=== PATIENT | female | born 1995 | race Caucasian/White ===

== ENCOUNTER 2020-12-19 22:40 | Emergency (ER) | payer OTHER ==
[2020-12-19 23:18] LABS: HEMOGLOBIN 12.8 gm/dl (12.3-15.3); RED BLOOD COUNT 4.06 M/UL (4.00-5.10); WHITE BLOOD COUNT 8.3 K/UL (4.5-11.0)
[2020-12-19 23:33] LABS: BUN/CREATININE RATIO 16 (0-10)
[2020-12-20] MEDS ORDERED: OMNICEF 300 MG300 MG PO (00:29)
== END 2020-12-20 01:00 | disposition home or self-care (01) ==
LOC: ER1 22:40
PROVIDERS: Emergency Medicine
DX: O23.41 Unspecified infection of urinary tract in pregnancy, first trimester (principal); O99.331 Smoking (tobacco) complicating pregnancy, first trimester; F17.210 Nicotine dependence, cigarettes, uncomplicated; Z3A.01 Less than 8 weeks gestation of pregnancy
CPT/HCPCS: 80053; 81001; 84702; 85025; 87086; 96365; 99284; J0696

== ENCOUNTER 2021-05-23 23:41 | Outpatient (CLI) | payer OTHER ==
[~2021-05-23 23:41] MED LIST: OMNICEF 300 MG300 MG PO
== END 2021-05-24 01:54 | disposition home or self-care (01) ==
LOC: GENOP 23:41
DX: O36.8120 Decreased fetal movements, second trimester, not applicable or unspecified (principal); Z3A.27 27 weeks gestation of pregnancy
CPT/HCPCS: 59025

== ENCOUNTER 2021-06-02 21:52 | Outpatient (CLI) | payer OTHER | END 2021-06-02 23:39 | disposition home or self-care (01) | LOC: GENOP 21:52 | DX: O46.93 Antepartum hemorrhage, unspecified, third trimester (principal); O99.891 Other specified diseases and conditions complicating pregnancy; M54.5 Low back pain; R10.9 Unspecified abdominal pain; Z3A.28 28 weeks gestation of pregnancy | CPT/HCPCS: 81001; 83518; G0463 ==

== ENCOUNTER → 2021-07-13 | Outpatient (CLI) | payer OTHER | LOC: GENOP 21:25 | DX: O47.03 False labor before 37 completed weeks of gestation, third trimester (principal); Z3A.34 34 weeks gestation of pregnancy; O99.353 Diseases of the nervous system complicating pregnancy, third trimester; O99.513 Diseases of the respiratory system complicating pregnancy, third trimester; G43.909 Migraine, unspecified, not intractable, without status migrainosus; J45.909 Unspecified asthma, uncomplicated; O99.613 Diseases of the digestive system complicating pregnancy, third trimester; K21.9 Gastro-esophageal reflux disease without esophagitis | CPT/HCPCS: 76818; 81001; 96360 ==

== ENCOUNTER 2021-07-18 23:30 | Outpatient (CLI) | payer OTHER | END 2021-07-19 01:41 | disposition home or self-care (01) | LOC: GENOP 23:30 | DX: O99.891 Other specified diseases and conditions complicating pregnancy (principal); N89.8 Other specified noninflammatory disorders of vagina | CPT/HCPCS: 59025; 81001; 83518 ==

== ENCOUNTER 2021-08-09 16:20 | Inpatient (IN) | payer OTHER ==
[2021-08-09 17:26] LABS: HEMOGLOBIN 10.3 gm/dl (12.3-15.3); RED BLOOD COUNT 3.24 M/UL (4.00-5.10); WHITE BLOOD COUNT 12.8 K/UL (4.5-11.0)
[2021-08-09] MEDS ORDERED: PROAIR HFA8.5 GM INH (17:55)
[2021-08-09] MEDS ORDERED: VITAMIN B-625 MG PO (17:59)
[2021-08-09] MEDS ORDERED: TUMS200 MG PO (17:59)
[2021-08-09] MEDS ORDERED: ZYRTEC10 M3 PO (17:59)
[2021-08-09] MEDS ORDERED: ADVAIR 100-501 EACH INH (18:00)
[2021-08-09] MEDS ORDERED: PROTONIX 40 MG40 M1 PO (18:00)
[2021-08-12 07:33] LABS: HEMOGLOBIN 9.7 gm/dl (12.3-15.3)
[2021-08-12] MEDS ORDERED: HEMOCYTE324 MG PO (07:44)
[2021-08-12] MEDS ORDERED: COLACE100 MG PO (07:44)
[2021-08-12] MEDS ORDERED: IBUPROFEN800 MG PO (07:44)
[2021-08-12] MEDS ORDERED: PERCOCET 5/325 T1 EA PO (19:05)
== END 2021-08-13 11:33 | disposition home or self-care (01) | DRG 787 ==
LOC: GENOP 16:20 → OB 16:57
PROVIDERS: Obstetrics & Gynecology; ADMIT Obstetrics & Gynecology
PROC: 10D00Z1 Extraction of Products of Conception, Low, Open Approach (ICD-10-PCS; principal; 2021-08-09)
PROC: 10H073Z Insertion of Monitoring Electrode into Products of Conception, Via Natural or Artificial Opening (ICD-10-PCS; 2021-08-09)
PROC: 4A1H7CZ Monitoring of Products of Conception, Cardiac Rate, Via Natural or Artificial Opening (ICD-10-PCS; 2021-08-09)
DX: O41.03X0 Oligohydramnios, third trimester, not applicable or unspecified (principal); O10.92 Unspecified pre-existing hypertension complicating childbirth; O62.0 Primary inadequate contractions; Z37.0 Single live birth; Z3A.38 38 weeks gestation of pregnancy; O99.52 Diseases of the respiratory system complicating childbirth; Z20.822 Contact with and (suspected) exposure to COVID-19; O99.214 Obesity complicating childbirth; E66.9 Obesity, unspecified; O69.81X0 Labor and delivery complicated by cord around neck, without compression, not applicable or unspecified; Z90.49 Acquired absence of other specified parts of digestive tract; Z88.5 Allergy status to narcotic agent
CPT/HCPCS: 81001; 85014; 85018; 85025; 85461; 86850; 86900; 86901; C9113; G0463; J0690; J1885; J2270; J2274; J2370; J2405; J2590; J2765; J2790; J2795; U0002

== ENCOUNTER 2021-08-24 12:04 | Inpatient (IN) | payer BC, OTHER ==
[~2021-08-24] VITALS: Ht 162.6 cm; Wt 85.3 kg
[~2021-08-24 12:04] MED LIST changes: +ADVAIR 100-501 EACH INH; +COLACE100 MG PO; +HEMOCYTE324 MG PO; +IBUPROFEN800 MG PO; +PERCOCET 5/325 T1 EA PO; +PROAIR HFA8.5 GM INH; +PROTONIX 40 MG40 M1 PO; +TUMS200 MG PO; +VITAMIN B-625 MG PO; +ZYRTEC10 M3 PO
[2021-08-24] MEDS ORDERED: TYLENOL EXTRA500 MG PO (16:40)
[2021-08-24 17:40] LABS: HEMOGLOBIN 8.9 gm/dl (12.3-15.3); RED BLOOD COUNT 2.92 M/UL (4.00-5.10); WHITE BLOOD COUNT 13.5 K/UL (4.5-11.0)
[2021-08-24 18:03] LABS: BUN/CREATININE RATIO 22 (0-10)
--- NOTE | 2021-08-25 16:31 | NUR ---
PATIENT LEFT FLOOR IN BED PER SURGERY STAFF AT 1620
[2021-08-26 07:07] LABS: BUN/CREATININE RATIO 22 (0-10)
[2021-08-26] MEDS ORDERED: PERCOCET 5-3251 EACH PO (09:47)
[2021-08-26] MEDS ORDERED: IBUPROFEN600 MG PO (09:47)
[2021-08-26 09:57] LABS: HEMOGLOBIN 9.3 gm/dl (12.3-15.3); RED BLOOD COUNT 3.06 M/UL (4.00-5.10); WHITE BLOOD COUNT 12.7 K/UL (4.5-11.0)
--- NOTE | 2021-08-26 18:56 | NUR ---
SPOKE WITH PT AND FAMILY RE; WOUND CARE CONSULT. THEY WERE INFORMED BY DR EDGE THAT WOUND CARE WOULD SEE TODAY AND GIVE RECOMMENDATIONS FOR WOUND CARE AND ANTIBIOTICS. DR EDGE NOTIFIED AND INFORMED THAT WOUND CARE IS NOT AVAILABLE ON WEEKENDS AND USUALLY DOES NOT COME DOWN TO SEE PTS. CASE MANAGEMENT CONSULT PLACED.
[2021-08-27 06:41] LABS: BUN/CREATININE RATIO 23 (0-10)
[2021-08-27] MEDS ORDERED: CLINDAMYCIN HC300 MG PO (10:52)
--- NOTE | 2021-08-27 18:30 | NUR ---
WOUND VAC DRESSING CHANGED PER MD ORDER. TAPE AND SPONGE REMOVED. WOUND CLEAN, PINK, NO DRAINAGE NOTED. PT SCREAMING WITH TAPE REMOVAL. NEW SPONGE / TAPE APPLIED. WOUND VAC APPLIED WITH GOOD SEAL OBTAINED.
== END 2021-08-27 19:25 | disposition home or self-care (01) | DRG 776 ==
LOC: MED SURG 4 12:04
PROVIDERS: Obstetrics & Gynecology; ADMIT Obstetrics & Gynecology
PROC: 0J980ZZ Drainage of Abdomen Subcutaneous Tissue and Fascia, Open Approach (ICD-10-PCS; principal; 2021-08-26)
DX: O86.00 Infection of obstetric surgical wound, unspecified (principal); L03.311 Cellulitis of abdominal wall; L02.211 Cutaneous abscess of abdominal wall; O99.53 Diseases of the respiratory system complicating the puerperium; J45.909 Unspecified asthma, uncomplicated; Z20.822 Contact with and (suspected) exposure to COVID-19; O16.5 Unspecified maternal hypertension, complicating the puerperium; Z87.891 Personal history of nicotine dependence; Z90.49 Acquired absence of other specified parts of digestive tract
CPT/HCPCS: 36415; 80048; 80053; 80202; 82962; 85025; 85027; 87070; 87205; J1100; J2001; J2250; J2405; J2704; J3010; J3370; J7050; J7070; U0002

== ENCOUNTER → 2021-08-30 | Outpatient (CLI) | payer BC, OTHER ==
[~2021-08-30] MED LIST changes: +CLINDAMYCIN HC300 MG PO; +IBUPROFEN600 MG PO; +PERCOCET 5-3251 EACH PO; +TYLENOL EXTRA500 MG PO
== END ==
LOC: WCC 07:24
DX: T81.42XA Infection following a procedure, deep incisional surgical site, initial encounter (principal); T81.30XA Disruption of wound, unspecified, initial encounter; R10.30 Lower abdominal pain, unspecified; F17.290 Nicotine dependence, other tobacco product, uncomplicated
CPT/HCPCS: 97597

== ENCOUNTER → 2021-09-03 | Outpatient (CLI) | payer BC, OTHER | LOC: WCC 08:52 | DX: T81.31XA Disruption of external operation (surgical) wound, not elsewhere classified, initial encounter (principal); R10.30 Lower abdominal pain, unspecified; F17.290 Nicotine dependence, other tobacco product, uncomplicated; Z88.5 Allergy status to narcotic agent ==

== ENCOUNTER → 2021-09-10 | Outpatient (CLI) | payer BC, OTHER | END | disposition home or self-care (01) | LOC: WCC 08:32 | DX: T81.42XA Infection following a procedure, deep incisional surgical site, initial encounter (principal); T81.30XA Disruption of wound, unspecified, initial encounter; R10.30 Lower abdominal pain, unspecified; F17.290 Nicotine dependence, other tobacco product, uncomplicated ==

== ENCOUNTER → 2021-09-13 | Outpatient (CLI) | payer BC, OTHER | LOC: WCC 13:43 | DX: T81.30XA Disruption of wound, unspecified, initial encounter (principal) | CPT/HCPCS: 97605 ==

== ENCOUNTER → 2021-09-17 | Outpatient (CLI) | payer BC, OTHER | LOC: WCC 09:12 | DX: T81.30XD Disruption of wound, unspecified, subsequent encounter (principal); T81.42XD Infection following a procedure, deep incisional surgical site, subsequent encounter; R10.30 Lower abdominal pain, unspecified; F17.290 Nicotine dependence, other tobacco product, uncomplicated; J45.909 Unspecified asthma, uncomplicated; Z88.6 Allergy status to analgesic agent; Y83.8 Other surgical procedures as the cause of abnormal reaction of the patient, or of later complication, without mention of misadventure at the time of the procedure ==

== ENCOUNTER → 2021-09-18 | Outpatient (CLI) | payer BC, OTHER | LOC: WCC 09:40 | DX: T81.31XA Disruption of external operation (surgical) wound, not elsewhere classified, initial encounter (principal); J45.909 Unspecified asthma, uncomplicated | CPT/HCPCS: G0463 ==

== ENCOUNTER → 2021-09-20 | Outpatient (CLI) | payer BC, OTHER | LOC: WCC 09:06 | DX: T81.31XA Disruption of external operation (surgical) wound, not elsewhere classified, initial encounter (principal); J45.909 Unspecified asthma, uncomplicated | CPT/HCPCS: G0463 ==

== ENCOUNTER → 2021-09-24 | Outpatient (CLI) | payer BC, OTHER ==
[~2021-09-24] MED LIST changes: +FLAGYL375 MG PO; +PREDNISONE 20 M20 MG PO
== END ==
LOC: WCC 08:22
DX: T81.30XA Disruption of wound, unspecified, initial encounter (principal); T81.42XA Infection following a procedure, deep incisional surgical site, initial encounter; R10.30 Lower abdominal pain, unspecified; F17.290 Nicotine dependence, other tobacco product, uncomplicated; J45.909 Unspecified asthma, uncomplicated; Y83.8 Other surgical procedures as the cause of abnormal reaction of the patient, or of later complication, without mention of misadventure at the time of the procedure; Y92.9 Unspecified place or not applicable; Z88.6 Allergy status to analgesic agent

== ENCOUNTER 2021-10-03 09:16 | Emergency (ER) | payer BC, OTHER ==
[~2021-10-03 09:16] MED LIST changes: -FLAGYL375 MG PO; -PREDNISONE 20 M20 MG PO
[2021-10-03 11:04] LABS: HEMOGLOBIN 12.9 gm/dl (12.3-15.3); RED BLOOD COUNT 4.28 M/UL (4.00-5.10); WHITE BLOOD COUNT 8.3 K/UL (4.5-11.0)
[2021-10-03 13:08] LABS: BUN/CREATININE RATIO 14 (0-10)
== END 2021-10-03 15:35 | disposition home or self-care (01) ==
LOC: ER1 09:16
PROVIDERS: Emergency Medicine
DX: K52.9 Noninfective gastroenteritis and colitis, unspecified (principal)
CPT/HCPCS: 80053; 81001; 82150; 83690; 84703; 85025; 85652; 86140; 96374; 96375; 99284; C9113; J2405; Q9967

== ENCOUNTER 2021-10-05 01:47 | Emergency (ER) | payer BC, OTHER ==
[2021-10-05 03:23] LABS: BUN/CREATININE RATIO 11 (0-10)
[2021-10-05 03:25] LABS: HEMOGLOBIN 12.7 gm/dl (12.3-15.3); RED BLOOD COUNT 4.26 M/UL (4.00-5.10)
[2021-10-05 03:30] LABS: WHITE BLOOD COUNT 11.2 K/UL (4.5-11.0)
[2021-10-05] MEDS ORDERED: PERCOCET 5/325 T1 EA PO (08:17)
[2021-10-05] MEDS ORDERED: PREDNISONE 20 M20 MG PO (08:19)
[2021-10-05] MEDS ORDERED: FLAGYL375 MG PO (08:19)
== END 2021-10-05 08:27 | disposition home or self-care (01) ==
LOC: ER1 01:47
PROVIDERS: Physician Assistant Medical
DX: R10.9 Unspecified abdominal pain (principal); R11.2 Nausea with vomiting, unspecified; R19.7 Diarrhea, unspecified; R10.817 Generalized abdominal tenderness; J45.909 Unspecified asthma, uncomplicated; F17.290 Nicotine dependence, other tobacco product, uncomplicated; Z88.5 Allergy status to narcotic agent; Z90.49 Acquired absence of other specified parts of digestive tract
CPT/HCPCS: 80053; 81001; 83605; 83690; 84703; 85025; 85652; 86140; 87086; 96374; 96375; 96376; 99284; J2270; J2405; J7030; Q9967

== ENCOUNTER → 2021-10-08 | Outpatient (CLI) | payer BC, OTHER ==
[~2021-10-08] MED LIST changes: +FLAGYL375 MG PO; +PREDNISONE 20 M20 MG PO
== END ==
LOC: WCC 08:19
DX: O90.0 Disruption of cesarean delivery wound (principal); T81.42XA Infection following a procedure, deep incisional surgical site, initial encounter; R10.30 Lower abdominal pain, unspecified; F17.290 Nicotine dependence, other tobacco product, uncomplicated; Z88.5 Allergy status to narcotic agent; Z79.899 Other long term (current) drug therapy

== ENCOUNTER → 2021-10-15 | Outpatient (CLI) | payer BC, OTHER | LOC: WCC 08:58 | DX: T81.42XD Infection following a procedure, deep incisional surgical site, subsequent encounter (principal); T81.30XD Disruption of wound, unspecified, subsequent encounter; R10.30 Lower abdominal pain, unspecified; F17.290 Nicotine dependence, other tobacco product, uncomplicated | CPT/HCPCS: G0463 ==